=== PATIENT | female | born 1940 | race Caucasian/White ===

== ENCOUNTER → 2016-06-06 | Outpatient (CLI) | payer OTHER, BC ==
[~2016-06-06] MED LIST: LEVEMIR FL100 UNITS/; METFORMIN HCL500 MG
== END | disposition home or self-care (01) ==
DX: M17.11 Unilateral primary osteoarthritis, right knee (principal); M25.561 Pain in right knee; M25.661 Stiffness of right knee, not elsewhere classified; R26.2 Difficulty in walking, not elsewhere classified; M62.89 Other specified disorders of muscle
CPT/HCPCS: 97110 GP; 97150 GO; 97161 GP; 97165 GO; G8978 GP; G8979 GP; G8980 GP; G8987 GO; G8988 GO; G8989 GO

== ENCOUNTER 2016-07-17 05:52 | Inpatient (IN) | payer OTHER, BC ==
[~2016-07-17] VITALS: Ht 165.1 cm; Wt 98.6 kg
[~2016-07-17 05:52] MED LIST changes: +ALDACTONE25 MG PO; +ARICEPT10 MG PO; +ATACAND32 MG PO; +CARDIZEM CD,CA240 MG PO; +CRESTOR40 MG PO; +CYMBALTA30 MG PO; +DITROPAN XL10 MG PO; +LO-DOSE ASPIRIN81 M2 PO; +METFORMIN HCL500 M4 PO; +MICROZIDE12.5 M1 PO; +NAMENDA XR28 MG PO; +NOVOLOG PE100 UNITS/ SC; +SYNTHROID50 MCG PO; +WELLBUTRIN SR150 MG PO
[2016-07-17 06:36] VITALS: BP 135/60
[2016-07-17 06:40] LABS: POINT-OF-CARE METER ID UU14174212
[2016-07-17 09:20] LABS: POINT-OF-CARE METER ID UU13113675
[2016-07-17 10:01] LABS: POINT-OF-CARE METER ID UU13113675
[2016-07-17 10:20] VITALS: BP 140/65
[2016-07-17 10:41] LABS: HEMATOCRIT 36.8 % (36.0-46.0); MCHC 31.8 G/DL (30.0-36.0); MEAN PLAT.VOLUME 9.9 uM^3 (9.5-12.4); PLATELET COUNT 207 K/uL (156-360); RBC DIS.WIDTH-CV 14.2 % (11.8-14.6); RBC DIS.WIDTH-SD 43.8 % (39-53); RED BLOOD COUNT 4.33 M/uL (3.80-5.20); WHITE BLOOD COUNT 12.3 K/uL (4.1-10.2)
[2016-07-17 11:37] LABS: POINT-OF-CARE METER ID UU13113712
[2016-07-17 15:31] VITALS: BP 140/63
[2016-07-17 16:26] LABS: POINT-OF-CARE METER ID UU13113712
[2016-07-17 20:14] VITALS: BP 175/70
[2016-07-17 21:43] LABS: POINT-OF-CARE METER ID UU13113712
[2016-07-18 00:20] VITALS: BP 176/76
[2016-07-18 04:25] VITALS: BP 161/70
[2016-07-18 05:56] LABS: HEMATOCRIT 30.1 % (36.0-46.0); MCV 84.3 FL (83-99)
[2016-07-18 06:22] LABS: ANION GAP 10 MEQ/L (2-14); CHLORIDE 95 MEQ/L (99-109); GFR ESTIMATE (CALCULATED) 57 mL/min/; GLUCOSE 257 mg/dL (70-99); POTASSIUM 4.4 MEQ/L (3.7-5.4); SAMPLE HEMOLYSIS CHECK 0; SAMPLE ICTERIC CHECK 0; SAMPLE LIPEMIA CHECK 0; SODIUM 128 MEQ/L (136-147); UREA NITROGEN (BUN) 22 mg/dL (9-23)
[2016-07-18 08:03] VITALS: BP 173/75
[2016-07-18 11:31] VITALS: BP 161/70
[2016-07-18 11:46] LABS: POINT-OF-CARE METER ID UU13113712
[2016-07-18 15:23] VITALS: BP 160/70
[2016-07-18 16:16] LABS: POINT-OF-CARE METER ID UU13113712
[2016-07-18 20:06] VITALS: BP 189/80
[2016-07-18 21:59] LABS: POINT-OF-CARE METER ID UU13113712
[2016-07-19 00:01] VITALS: BP 151/65
[2016-07-19 04:23] VITALS: BP 140/60
[2016-07-19 06:07] LABS: HEMATOCRIT 30.9 % (36.0-46.0); MCV 82.2 FL (83-99)
[2016-07-19 08:01] LABS: POINT-OF-CARE METER ID UU13113712
[2016-07-19 08:14] VITALS: BP 124/60
[2016-07-19 11:19] LABS: POINT-OF-CARE METER ID UU13113712
[2016-07-19 12:03] VITALS: BP 137/64
[2016-07-19 15:40] VITALS: BP 147/64
[2016-07-19 16:29] LABS: POINT-OF-CARE METER ID UU13113712
[2016-07-19 20:06] VITALS: BP 146/68
[2016-07-19 22:21] LABS: POINT-OF-CARE METER ID UU13113712
[2016-07-20 00:16] VITALS: BP 155/69
[2016-07-20 04:18] VITALS: BP 160/70
[2016-07-20 07:30] LABS: POINT-OF-CARE METER ID UU13113712
[2016-07-20 08:17] VITALS: BP 151/65
[2016-07-20] MEDS ORDERED: CELECOXIB200 MG PO (08:22)
[2016-07-20] MEDS ORDERED: SENNA PLUS TAB1 EACH PO (08:22)
[2016-07-20] MEDS ORDERED: HYDROCODON-ACE1 EAC7 PO (08:22)
[2016-07-20] MEDS ORDERED: LOVENOX40 MG/0.4 SC (08:22)
[2016-07-20 11:24] LABS: POINT-OF-CARE METER ID UU13113712
[2016-07-20 12:06] VITALS: BP 143/66
== END 2016-07-20 13:01 | DRG 470 ==
LOC: 3WEST 05:52 → 2SOUTH 05:52 → 3WEST 10:11 → 2SOUTH 11:44 → 3WEST 07-20 13:01
PROVIDERS: Orthopaedic Surgery
PROC: 0SRC0J9 Replacement of Right Knee Joint with Synthetic Substitute, Cemented, Open Approach (ICD-10-PCS; principal; 2016-07-17)
DX: M17.11 Unilateral primary osteoarthritis, right knee (principal); I10 Essential (primary) hypertension; M21.169 Varus deformity, not elsewhere classified, unspecified knee; F03.90 Unspecified dementia, unspecified severity, without behavioral disturbance, psychotic disturbance, mood disturbance, and anxiety; E11.9 Type 2 diabetes mellitus without complications; E07.9 Disorder of thyroid, unspecified; F32.9 Major depressive disorder, single episode, unspecified; R32 Unspecified urinary incontinence; I25.10 Atherosclerotic heart disease of native coronary artery without angina pectoris; Z95.1 Presence of aortocoronary bypass graft; Z94.9 Transplanted organ and tissue status, unspecified; Z68.33 Body mass index [BMI] 33.0-33.9, adult
CPT/HCPCS: 71010; 73560; 80048; 82948; 85014; 85018; 85027; J0131; J0690; J1170; J1650; J1815; J2250; J3010; J7042; J7050